=== PATIENT | male | born 1955 | race Caucasian/White ===

== ENCOUNTER 2023-12-19 15:34 | Inpatient (IN) | payer OTHER, MEDICARE ==
[~2023-12-19] VITALS: Ht 177.8 cm; Wt 84.5 kg
[2023-12-19 16:42] LABS: BASOPHILS % (AUTO) 0.6 % (0-1); EOSINOPHILS # (AUTO) 0.1 X10'3 (0-0.9); EOSINOPHILS % (AUTO) 2.3 % (0-6); HEMATOCRIT 34.5 % (42.0-52.0); HEMOGLOBIN 11.3 g/dl (14.0-17.9); LYMPHOCYTES # (AUTO) 1.7 X10'3 (1.1-4.8); MEAN CORPUSCULAR HEMOGLOBIN 27.6 PG (27.0-31.0); MEAN CORPUSCULAR HGB CONC 32.6 g/dL (33.0-36.5); MEAN CORPUSCULAR VOLUME 84.6 FL (78-98); MONOCYTES # (AUTO) 0.4 X10'3 (0-0.9); MONOCYTES % (AUTO) 7.8 % (2-12); NEUTROPHILS # (AUTO) 3.3 X10'3 (1.8-7.7); NEUTROPHILS % (AUTO) 59.3 % (42-75); PLATELET COUNT 283 X10'3 (140-440); RED BLOOD COUNT 4.08 X10'6 (4.70-6.10); RED CELL DISTRIBUTION WIDTH 19.2 % (11.5-14.5); WHITE BLOOD COUNT 5.6 X10'3 (4.5-11.0)
[2023-12-19 16:52] LABS: ALBUMIN 3.4 G/DL (3.4-5.0); ANION GAP 13 (8-16); BLOOD UREA NITROGEN 18 MG/DL (7-18); BUN/CREATININE RATIO 18.6 (10.0-20.0); CALCIUM 6.1 MG/DL (8.5-10.1); CHLORIDE 106 MMOL/L (99-107); CREATININE 0.97 MG/DL (0.60-1.10); GLUCOSE 104 MG/DL (70-104); POTASSIUM 3.2 MMOL/L (3.5-5.1); SODIUM 142 MMOL/L (135-145); TOTAL CARBON DIOXIDE 22.7 MMOL/L (24-32); eCRCL 77 ML/MIN; eGFR 77 ML/MIN
[2023-12-19] MEDS ORDERED: mag hydrox/Alum hydrox/simeth 30ml oral suspension PO PRN (17:35)
[2023-12-19] MEDS ORDERED: potassium Cl 20 mEq SR tablet PO PRN (17:35)
[2023-12-19] MEDS ORDERED: magnesium sulf-water 4G/100mL 100 ML IV PRN (17:35)
[2023-12-19] MEDS ORDERED: ondansetron/PF 4mg/2ml inj IV PRN (17:35)
[2023-12-19] MEDS ORDERED: acetaminophen 325mg tablet PO PRN (17:35)
[2023-12-19] MEDS ORDERED: magnesium Cl slow-release 64mg tablet PO PRN (17:35)
[2023-12-19] MEDS ORDERED: magnesium hydroxide 30ml (MOM) UD suspension PO PRN (17:35)
[2023-12-19] MEDS ORDERED: potassium Cl 40MEQ/1/2NS 520ml 520 ML IV PRN (17:35)
[2023-12-19] MEDS ORDERED: magnesium sulf-water 2g/50mL 50 ML IV PRN (17:35)
[2023-12-19] MEDS: CALCIUM GLUC 1gm/50ml NACL,iso 50 ML IV ONE ×2 (18:04→19:20)
[2023-12-19 18:14] LABS: ALKALINE PHOSPHATASE 89 IU/L (46-116); PHOSPHORUS 4.9 MG/DL (2.3-4.5)
[2023-12-19 18:25] LABS: ALBUMIN 3.5 G/DL (3.4-5.0); CALCIUM 6.4 MG/DL (8.5-10.1)
[2023-12-19] MEDS: potassium Cl 20 mEq SR tablet PO PRN (19:34)
[2023-12-19] MEDS: K and/or MAG REPLACEMENT MC SCH (19:34)
[2023-12-19] MEDS: docusate sod 100mg capsule PO SCH (19:34)
[2023-12-19 19:36] LABS: BILIRUBIN,URINE NEGATIVE (Neg); CLARITY,URINE SLIGHTLY CLOUDY (Clear); COLOR,URINE YELLOW (Yellow); GLUCOSE, URINE NEGATIVE (Neg); KETONES,URINE NEGATIVE (Neg); LEUKOCYTE ESTERASE ,URINE NEGATIVE (Neg); NITRITES, URINE NEGATIVE (Neg); OCCULT BLOOD,URINE NEGATIVE (Neg); PH,URINE 5.5 (4.8-8.0); PROTEIN,URINE NEGATIVE (Neg); UROBILINOGEN,URINE 0.2 E.U/dL (0.2-1.0)
[2023-12-19 19:44] LABS: UA COLLECTION TYPE URINAL
[2023-12-19 19:49] LABS: BACTERIA,URINE FEW /HPF (Neg); RBC,URINE 0-2 /HPF (0-2); SQUAMOUS EPITHELIAL CELL,UR FEW /LPF (FEW); WBC,URINE 0-4 /HPF (0-4)
[2023-12-19 20:00] LABS: ALANINE AMINOTRANSFERASE 20 U/L (12-78); ALBUMIN 3.6 G/DL (3.4-5.0); ALBUMIN/GLOBULIN RATIO 0.9 (1.1-1.5); ALKALINE PHOSPHATASE 93 IU/L (46-116); ANION GAP 16 (8-16); ASPARTATE AMINO TRANSFERASE 19 U/L (10-37); BILIRUBIN,TOTAL 0.3 MG/DL (0.1-1.0); BLOOD UREA NITROGEN 21 MG/DL (7-18); BUN/CREATININE RATIO 23.9 (10.0-20.0); CALCIUM 6.6 MG/DL (8.5-10.1); CHLORIDE 106 MMOL/L (99-107); CREATININE 0.88 MG/DL (0.60-1.10); GLUCOSE 84 MG/DL (70-104); POTASSIUM 3.3 MMOL/L (3.5-5.1); SODIUM 141 MMOL/L (135-145); TOTAL CARBON DIOXIDE 19.3 MMOL/L (24-32); TOTAL PROTEIN 7.4 G/DL (6.4-8.2); eCRCL 85 ML/MIN; eGFR 87 ML/MIN
[2023-12-19] MEDS: calcium carbonate 500mg tablet PO SCH (20:30)
[2023-12-20 03:05] LABS: BASOPHILS % (AUTO) 0.3 % (0-1); EOSINOPHILS # (AUTO) 0.1 X10'3 (0-0.9); EOSINOPHILS % (AUTO) 2.6 % (0-6); HEMATOCRIT 35.5 % (42.0-52.0); HEMOGLOBIN 11.5 g/dl (14.0-17.9); LYMPHOCYTES # (AUTO) 1.6 X10'3 (1.1-4.8); MEAN CORPUSCULAR HEMOGLOBIN 27.3 PG (27.0-31.0); MEAN CORPUSCULAR HGB CONC 32.3 g/dL (33.0-36.5); MEAN CORPUSCULAR VOLUME 84.4 FL (78-98); MONOCYTES # (AUTO) 0.5 X10'3 (0-0.9); MONOCYTES % (AUTO) 8.6 % (2-12); NEUTROPHILS # (AUTO) 3.1 X10'3 (1.8-7.7); NEUTROPHILS % (AUTO) 58.5 % (42-75); PLATELET COUNT 262 X10'3 (140-440); RED BLOOD COUNT 4.21 X10'6 (4.70-6.10); WHITE BLOOD COUNT 5.4 X10'3 (4.5-11.0)
[2023-12-20 03:17] LABS: ANION GAP 12 (8-16); BLOOD UREA NITROGEN 21 MG/DL (7-18); CALCIUM 6.8 MG/DL (8.5-10.1); CHLORIDE 107 MMOL/L (99-107); CREATININE 0.75 MG/DL (0.60-1.10); GLUCOSE 98 MG/DL (70-104); MAGNESIUM 1.9 MG/DL (1.5-2.4); PHOSPHORUS 5.3 MG/DL (2.3-4.5); POTASSIUM 3.5 MMOL/L (3.5-5.1); SODIUM 141 MMOL/L (135-145); TOTAL CARBON DIOXIDE 22.4 MMOL/L (24-32); eCRCL 100 ML/MIN; eGFR > 90 ML/MIN
[2023-12-20] MEDS ORDERED: CALCIUM GLUC 1gm/50ml NACL,iso 100 ML IV ONE ×2 (07:15→07:20)
[2023-12-20] MEDS: CALCIUM GLUC 1gm/50ml NACL,iso 50 ML IV ONE ×2 (07:42→08:08)
[2023-12-20 08:05] VITALS: BP 126/63; PULSE 60; RESP 17; TEMP 98.3; O2SAT 100
[2023-12-20] MEDS: enoxaparin 40mg/0.4ml syringe SUBCUT SCH (08:07)
[2023-12-20 11:53] VITALS: RESP 18; O2SAT 100
[2023-12-20] MEDS ORDERED: OSC500T PO (13:29)
[2023-12-20] MEDS ORDERED: ASPI-1265 PO (13:29)
[2023-12-20] MEDS ORDERED: SIMV-342 PO (13:29)
[2023-12-20] MEDS ORDERED: DOCU100C38 PO (13:29)
[2023-12-20] MEDS ORDERED: SYN0.088T PO (13:29)
[2023-12-20] MEDS ORDERED: LORA10TA7 PO (13:29)
[2023-12-20] MEDS ORDERED: FLUO20CA39 PO (13:29)
[2023-12-20] MEDS ORDERED: LISI20TA28 PO (13:29)
[2023-12-20 15:09] LABS: ALBUMIN 3.3 G/DL (3.4-5.0); CALCIUM 7.5 MG/DL (8.5-10.1)
[2023-12-20 18:00] VITALS: BP 126/65; PULSE 53; RESP 17; TEMP 97.6; O2SAT 98
[2023-12-20 19:00] VITALS: RESP 17; O2SAT 98
[2023-12-20] MEDS: simvastatin 20mg tablet PO SCH (20:45)
[2023-12-20 22:00] VITALS: BP 141/62; PULSE 51; RESP 18; TEMP 97.4; O2SAT 99
[2023-12-21 06:03] LABS: BASOPHILS % (AUTO) 0.5 % (0-1); EOSINOPHILS # (AUTO) 0.1 X10'3 (0-0.9); EOSINOPHILS % (AUTO) 2.5 % (0-6); HEMATOCRIT 37.4 % (42.0-52.0); HEMOGLOBIN 12.3 g/dl (14.0-17.9); LYMPHOCYTES # (AUTO) 1.3 X10'3 (1.1-4.8); LYMPHOCYTES % (AUTO) 21.7 % (21-51); MEAN CORPUSCULAR HEMOGLOBIN 27.9 PG (27.0-31.0); MEAN CORPUSCULAR HGB CONC 32.8 g/dL (33.0-36.5); MEAN PLATELET VOLUME 8.4 FL (7.4-10.4); MONOCYTES # (AUTO) 0.5 X10'3 (0-0.9); MONOCYTES % (AUTO) 7.9 % (2-12); NEUTROPHILS % (AUTO) 67.4 % (42-75); PLATELET COUNT 251 X10'3 (140-440); RED CELL DISTRIBUTION WIDTH 18.9 % (11.5-14.5); WHITE BLOOD COUNT 5.9 X10'3 (4.5-11.0)
[2023-12-21 06:19] LABS: ALBUMIN 3.2 G/DL (3.4-5.0); ANION GAP 12 (8-16); BLOOD UREA NITROGEN 20 MG/DL (7-18); BUN/CREATININE RATIO 27.4 (10.0-20.0); CALCIUM 7.1 MG/DL (8.5-10.1); CHLORIDE 105 MMOL/L (99-107); CREATININE 0.73 MG/DL (0.60-1.10); GLUCOSE 101 MG/DL (70-104); MAGNESIUM 1.8 MG/DL (1.5-2.4); SODIUM 139 MMOL/L (135-145); THYROID STIMULATING HORMONE 3.03 ulU/ml (0.34-4.50); TOTAL CARBON DIOXIDE 22.3 MMOL/L (24-32); eCRCL 103 ML/MIN; eGFR > 90 ML/MIN
[2023-12-21 07:00] VITALS: BP 120/69; PULSE 65; RESP 18; TEMP 97.5; O2SAT 100
[2023-12-21] MEDS ORDERED: CALCIUM GLUC 1gm/50ml NACL,iso 50 ML IV ONE (07:50)
[2023-12-21 08:00] VITALS: RESP 18; O2SAT 100
[2023-12-21] MEDS: FLUoxetine 20mg capsule PO SCH (08:10)
[2023-12-21] MEDS: lisinopril 10 MG tablet PO SCH (08:10)
[2023-12-21] MEDS: aspirin 81mg tab.chew PO SCH (08:10)
[2023-12-21] MEDS: levoTHYROXINE 88mcg tablet PO SCH (08:26)
[2023-12-21] MEDS: magnesium sulf-water 2g/50mL 50 ML IV ONE (13:38)
[2023-12-21] MEDS: calcium gluconate inj. 2 GM in normal saline 100ml IV soln 100 ML IV SCH ×2 (13:52→22:58)
[2023-12-21 14:00] VITALS: BP 121/61; PULSE 62; RESP 12; TEMP 98.4; O2SAT 98
[2023-12-21 18:00] VITALS: BP 120/63; PULSE 60; RESP 14; TEMP 97; O2SAT 100
[2023-12-21 20:00] VITALS: RESP 14; O2SAT 100
[2023-12-22 02:00] VITALS: BP 103/46; PULSE 56; RESP 14; TEMP 98.1; O2SAT 97
[2023-12-22 06:20] LABS: BASOPHILS % (AUTO) 0.3 % (0-1); EOSINOPHILS # (AUTO) 0.2 X10'3 (0-0.9); EOSINOPHILS % (AUTO) 2.5 % (0-6); HEMOGLOBIN 13.7 g/dl (14.0-17.9); LYMPHOCYTES # (AUTO) 1.7 X10'3 (1.1-4.8); LYMPHOCYTES % (AUTO) 23.5 % (21-51); MEAN CORPUSCULAR HEMOGLOBIN 27.7 PG (27.0-31.0); MEAN CORPUSCULAR HGB CONC 32.5 g/dL (33.0-36.5); MEAN CORPUSCULAR VOLUME 85.4 FL (78-98); MEAN PLATELET VOLUME 8.2 FL (7.4-10.4); MONOCYTES # (AUTO) 0.7 X10'3 (0-0.9); NEUTROPHILS # (AUTO) 4.7 X10'3 (1.8-7.7); NEUTROPHILS % (AUTO) 64.7 % (42-75); PLATELET COUNT 309 X10'3 (140-440); RED BLOOD COUNT 4.92 X10'6 (4.70-6.10); RED CELL DISTRIBUTION WIDTH 19.3 % (11.5-14.5); WHITE BLOOD COUNT 7.3 X10'3 (4.5-11.0)
[2023-12-22 06:30] LABS: ALBUMIN 3.6 G/DL (3.4-5.0); ANION GAP 12 (8-16); BLOOD UREA NITROGEN 21 MG/DL (7-18); BUN/CREATININE RATIO 24.1 (10.0-20.0); CALCIUM 7.5 MG/DL (8.5-10.1); CHLORIDE 103 MMOL/L (99-107); CREATININE 0.87 MG/DL (0.60-1.10); GLUCOSE 105 MG/DL (70-104); MAGNESIUM 2.1 MG/DL (1.5-2.4); PHOSPHORUS 6.4 MG/DL (2.3-4.5); POTASSIUM 4.2 MMOL/L (3.5-5.1); SODIUM 139 MMOL/L (135-145); TOTAL CARBON DIOXIDE 24.3 MMOL/L (24-32); eCRCL 86 ML/MIN; eGFR 88 ML/MIN
[2023-12-22 07:00] VITALS: BP 119/61; PULSE 55; RESP 19; TEMP 97.5; O2SAT 99
[2023-12-22] MEDS: normal saline 1000ml 1,000 ML IV SCH (10:17)
[2023-12-22] MEDS: normal saline 500ml IV soln 500 ML IV ONE (10:17)
[2023-12-22 11:00] VITALS: BP 103/59; PULSE 60; RESP 14; TEMP 97.6; O2SAT 100
[2023-12-22] MEDS: calcium acetate 667mg (PhosLO) capsule PO SCH (12:13)
[2023-12-22] MEDS ORDERED: calcium carbonate 500mg tablet PO SCH (13:46)
[2023-12-22] MEDS ORDERED: CALC667T6 PO (14:02)
== END 2023-12-22 14:14 | disposition home or self-care (01) | DRG 641 ==
LOC: ER 15:35 → ED HOLD 17:41 → PCU 3S 12-20 07:15
PROVIDERS: ADMIT Family Medicine; ATTEND Family Medicine
DX: E83.51 Hypocalcemia (principal); E87.6 Hypokalemia; I10 Essential (primary) hypertension; E78.5 Hyperlipidemia, unspecified; F17.210 Nicotine dependence, cigarettes, uncomplicated; R94.31 Abnormal electrocardiogram [ECG] [EKG]; R73.03 Prediabetes; Z85.46 Personal history of malignant neoplasm of prostate
CPT/HCPCS: 36415; 80048; 80053; 81001; 82040; 82310; 82330; 83036; 83735; 83970; 84075; 84100; 84443; 85025; 87081; 93005; 99285; G0378; J0610; J1650; J7030; J7040

== ENCOUNTER 2024-01-01 11:04 | Emergency (ER) | payer OTHER, MEDICARE ==
[~2024-01-01] VITALS: Ht 175.3 cm; Wt 98.4 kg
[~2024-01-01 11:04] MED LIST: ASPI-1265 PO; CALC667T6 PO; DOCU100C38 PO; FLUO20CA39 PO; LISI20TA28 PO; LORA10TA7 PO; OSC500T PO; SIMV-342 PO; SYN0.088T PO
[2024-01-01 11:07] VITALS: BP 142/74; PULSE 71; TEMP 97.6; O2SAT 98
[2024-01-01 12:27] LABS: BASOPHILS % (AUTO) 0.7 % (0-1); EOSINOPHILS # (AUTO) 0.1 X10'3 (0-0.9); EOSINOPHILS % (AUTO) 2.8 % (0-6); HEMATOCRIT 34.3 % (42.0-52.0); HEMOGLOBIN 11.2 g/dl (14.0-17.9); LYMPHOCYTES # (AUTO) 1.3 X10'3 (1.1-4.8); LYMPHOCYTES % (AUTO) 27.2 % (21-51); MEAN CORPUSCULAR HGB CONC 32.7 g/dL (33.0-36.5); MEAN CORPUSCULAR VOLUME 85.5 FL (78-98); MONOCYTES # (AUTO) 0.4 X10'3 (0-0.9); MONOCYTES % (AUTO) 7.5 % (2-12); NEUTROPHILS % (AUTO) 61.8 % (42-75); PLATELET COUNT 260 X10'3 (140-440); RED BLOOD COUNT 4.01 X10'6 (4.70-6.10); WHITE BLOOD COUNT 4.9 X10'3 (4.5-11.0)
[2024-01-01 12:41] VITALS: RESP 16
[2024-01-01 12:41] LABS: ALANINE AMINOTRANSFERASE 12 U/L (12-78); ALBUMIN 3.2 G/DL (3.4-5.0); ALBUMIN/GLOBULIN RATIO 0.9 (1.1-1.5); ALKALINE PHOSPHATASE 83 IU/L (46-116); ANION GAP 10 (8-16); ASPARTATE AMINO TRANSFERASE 16 U/L (10-37); BILIRUBIN,TOTAL 0.3 MG/DL (0.1-1.0); BLOOD UREA NITROGEN 25 MG/DL (7-18); BUN/CREATININE RATIO 26.3 (10.0-20.0); CALCIUM 6.8 MG/DL (8.5-10.1); CHLORIDE 109 MMOL/L (99-107); CREATININE 0.95 MG/DL (0.60-1.10); GLUCOSE 143 MG/DL (70-104); POTASSIUM 3.5 MMOL/L (3.5-5.1); SODIUM 144 MMOL/L (135-145); TOTAL CARBON DIOXIDE 25.3 MMOL/L (24-32); TOTAL PROTEIN 6.9 G/DL (6.4-8.2); eCRCL 76 ML/MIN; eGFR 79 ML/MIN
[2024-01-01 12:51] LABS: FREE T4 (FREE THYROXINE) 1.09 NG/DL (0.73-1.40); THYROID STIMULATING HORMONE 2.53 ulU/ml (0.34-4.50)
== END 2024-01-01 13:07 | disposition home or self-care (01) ==
LOC: ER 11:04
DX: E83.51 Hypocalcemia (principal); Z79.82 Long term (current) use of aspirin; Z79.899 Other long term (current) drug therapy
CPT/HCPCS: 36415; 80053; 83970; 84439; 84443; 85025; 99284